=== PATIENT | female | born 1970 | race Caucasian/White ===

== ENCOUNTER 2018-03-20 15:24 | Emergency (ER) | payer SELFPAY ==
[2018-03-20 15:35] VITALS: O2SAT 98
--- NOTE | 2018-03-20 15:38 | ERPHSYRPT ---
- History of Present Illness Time Seen by Provider: 03/20/18 15:33 Source: patient Physician History: 47-year-old white female arrives with complaint of [place] in the right side of her mouth of paresthesia right side of the face symptoms for 3 days. Patient states she went to sleep and awoke with the above-noted problems. Patient is had not had any problems speaking no problems moving her hands or feet or walking. Past medical history includes peripheral neuropathy Past surgical history includes , tubal ligation Social history positive for tobacco use denies alcohol or illicit drug use Timing/Duration: day(s) (3 days) Severity: moderate Modifying Factors: Improves With: nothing Associated Symptoms: other (drooping right-sided mouth paresthesia right side of face), No nausea, No vomiting, No abdominal pain, No shortness of breath, No heartburn, No diaphoresis, No cough, No chills, No chest pain, No fever, No headaches, No loss of appetite, No malaise, No rash, No syncope, No seizure, No weakness Allergies/Adverse Reactions: No Known Drug Allergies Allergy (Verified 03/20/18 15:34) Home Medications: No Reportable Medications [No Reported Medications] 03/20/18 [History] Hx Tetanus, Diphtheria Vaccination/Date Given: Yes Hx Influenza Vaccination/Date Given: No Hx Pneumococcal Vaccination/Date Given: No - Review of Systems Constitutional: No Fever, No Chills Eyes: No Symptoms Ears, Nose, & Throat: No Symptoms Respiratory: No Cough, No Dyspnea Cardiac: No Chest Pain, No Edema, No Syncope Abdominal/Gastrointestinal: No Abdominal Pain, No Nausea, No Vomiting, No Diarrhea Genitourinary Symptoms: No Dysuria Musculoskeletal: Other (pain right lateral neck), No Back Pain, No Neck Pain Skin: No Rash Neurological: Parasthesia (paresthesia right side of face), Other (drooping right side of mouth) Psychological: No Symptoms Endocrine: No Symptoms All Other Systems: Reviewed and Negative - Past Medical History Pertinent Past Medical History: No Neurological History: Peripheral Neuropathy - Past Surgical History Past Surgical History: Yes Female Surgical History: Section, Tubal Ligation - Social History Smoking Status: Current every day smoker Exposure to second hand smoke: Yes Drug Use: none Patient Lives Alone: No - Nursing Vital Signs Nursing Vital Signs: Initial Vital Signs Temperature 98.2 F 03/20/18 15:28 Pulse Rate 100 H 03/20/18 15:28 Respiratory Rate 18 03/20/18 15:28 Blood Pressure 163/101 03/20/18 15:28 O2 Sat by Pulse Oximetry 98 03/20/18 15:28 Pain Scale Pain Intensity 6 - Physical Exam General Appearance: other (wwell-developed well-nourished white speaks out of left side of mouth drooping right side of mouth unable to wrinkle right forehead alert, oriented 3 no acute distress) Eye Exam: PERRL/EOMI, eyes nml inspection, other (unable to elevate right eye brow) Ears, Nose, Throat Exam: other (Speaks out of left side of mouth drooping right side of mouth) Neck Exam: normal inspection, non-tender, supple, full range of motion Respiratory Exam: normal breath sounds, lungs clear, No respiratory distress Cardiovascular Exam: regular rate/rhythm, normal heart sounds, normal peripheral pulses Gastrointestinal/Abdomen Exam: soft, normal bowel sounds, No tenderness, No mass Back Exam: normal inspection, normal range of motion, No CVA tenderness, No vertebral tenderness Extremity Exam: normal inspection, normal range of motion, pelvis stable Neurologic Exam: alert, oriented x 3, other (electrical inspector equal and symmetrical 5 over 5, no pronator drift,sensation intact to all extremities unable to elevate right eyebrow drooping right side of mouth speaks out of left side of mouth eyes PERRLA EOMI fundi are unremarkable) Skin Exam: normal color, warm, dry, No rash Lymphatic Exam: No adenopathy SpO2 Interpretation: normal (99%) - Course Nursing assessment & vital signs reviewed: Yes EKG Interpreted by Me: RATE (89 bpm), Sinus Rhythm, Left [place] Deviation, Other ( EKG: Sinus rhythm, 89 bpm, left axis deviation, left anterior fascicular block, no acute ST or T wave changes) - CT Exams Head CT Interpretation: Discussed w/radiologist, Other (normal head CT without contrast) Ordered Tests: Active Orders 24 hr Category Date Time Status Accucheck STAT Care 03/20/18 15:31 Active Customs Officer STAT Care 03/20/18 15:32 Active EKG-ER Only STAT Care 03/20/18 15:31 Active IV Insertion STAT Care 03/20/18 15:31 Active HEAD WITHOUT CONTRAST [CT] Stat Exams 03/20/18 15:32 Completed CBC W DIFF Stat Lab 03/20/18 15:44 Completed CMP Stat Lab 03/20/18 15:44 Completed Lab/Rad Data: Laboratory Result Diagrams 03/20/18 15:44 03/20/18 15:44 Laboratory Results 03/20/18 03/20/18 Range/Units 15:44 15:44 WBC 11.3 H (4.0-10.5) K/mm3 RBC 4.28 (4.1-5.4) M/mm3 Hgb 12.2 (12.0-16.0) gm/dl Hct 38.1 (35-47) % MCV 89.0 (78-100) fl MCH 28.5 (26-32) pg MCHC 32.0 (32-36) g/dl RDW 15.0 H (11.5-14.0) % Plt Count 380 (150-450) K/mm3 MPV 10.6 H (6-9.5) fl Gran % 56.7 (36.0-66.0) % Eos # (Auto) 0.46 (0-0.5) Absolute Lymphs (auto) 3.49 (1.0-4.6) Absolute Monos (auto) 0.91 (0.0-1.3) Lymphocytes % 30.8 (24.0-44.0) % Monocytes % 8.0 (0.0-12.0) % Eosinophils % 4.1 (0.00-5.0) % Basophils % 0.4 (0.0-0.4) % Absolute Granulocytes 6.43 (1.4-6.9) Basophils # 0.04 (0-0.4) Sodium 141 (137-145) mmol/L Potassium 3.9 (3.5-5.1) mmol/L Chloride 104 (98-107) mmol/L Carbon Dioxide 27 (22-30) mmol/L Anion Gap 13.8 (5-15) MEQ/L BUN 13 (7-17) mg/dL Creatinine 0.69 (0.52-1.04) mg/dL Estimated GFR > 60.0 ML/MIN Glucose 108 H (74-106) mg/dL Calcium 9.2 (8.4-10.2) mg/dL Total Bilirubin 0.10 L (0.2-1.3) mg/dL AST 37 H (14-36) U/L ALT 36 H (0-35) U/L Alkaline Phosphatase 83 (38-126) U/L Serum Total Protein 7.3 (6.3-8.2) g/dL Albumin 4.1 (3.5-5.0) g/dL - Progress Progress: improved Progress Note: 03/20/18 16:59 Patient with Hawkins's palsy CT of the head is essentially normal. Patient does have involvement of the right forehead drooping of the right side of the mouth. No speech problems or problems moving extremities. I've discussed case with Dr. Bell. She would like me to place the patient on acyclovir and prednisone taper dose. And have patient follow-up with Rachel Renner she is to call for follow-up appointment in the next few days. - Departure Time of Disposition: 17:00 Departure Disposition: Home Clinical Impression: Weakness on right side of face, Hawkins's palsy Condition: Fair Critical Care Time: No Referrals: Rae Samaniego [Primary Care Provider] - Additional Instructions: Return home. Acyclovir and prednisone as directed.. Follow-up with Rachel Renner call in the morning to schedule an appointment within the next day or 2. Return for acute distress or for severe symptoms.
--- NOTE | 2018-03-20 16:05 | XRAY ---
Indication: Headache and right facial drooping. Family history of Hawkins's palsy. Multiple contiguous axial images obtained through the head without contrast. Comparison: None Normal appearing brain parenchyma, ventricles, and bony calvarium. Visualized paranasal sinuses and mastoid air cells are clear. Impression: Normal CT head without contrast exam. CTDI 68.98
[2018-03-20 16:17] LABS: ALBUMIN 4.1 g/dL (3.5-5.0); ALKALINE PHOSPHATASE 83 U/L (38-126); ANION GAP 13.8 MEQ/L (5-15); BLOOD UREA NITROGEN 13 mg/dL (7-17); CHLORIDE 104 mmol/L (98-107); Calcium 9.2 mg/dL (8.4-10.2); Carbon Dioxide 27 mmol/L (22-30); Creatinine 1 0.69 mg/dL (0.52-1.04); Glucose 108 mg/dL (74-106); Potassium 3.9 mmol/L (3.5-5.1); SGOT/AST 37 U/L (14-36); SGPT/ALT 36 U/L (0-35); SODIUM 141 mmol/L (137-145); Total Protein 7.3 g/dL (6.3-8.2)
[2018-03-20 16:18] LABS: BASOPHIL % 0.4 % (0.0-0.4); Basophil (Absolute #) 0.04 (0-0.4); Eosinophil % 4.1 % (0.00-5.0); Eosinophil (Absolute #) 0.46 (0-0.5); Granulocyte Absolute (ANC) 6.43 (1.4-6.9); Granulocytes % 56.7 % (36.0-66.0); Hematocrit 38.1 % (35-47); Hemoglobin 12.2 gm/dl (12.0-16.0); Lymphocyte (Absolute #) 3.49 (1.0-4.6); Lymphocytes % 30.8 % (24.0-44.0); Mean Corpuscular Hemoglobin 28.5 pg (26-32); Mean Platelet Volume 10.6 fl (6-9.5); Monocyte (Absolute #) 0.91 (0.0-1.3); Platelet Count 380 K/mm3 (150-450); Red Blood Count 4.28 M/mm3 (4.1-5.4); White Blood Count 11.3 K/mm3 (4.0-10.5)
[2018-03-20 17:06] VITALS: BP 158/96; PULSE 94
== END 2018-03-20 17:27 | disposition home or self-care (01) ==
LOC: ED 15:24
DX: G51.0 Bell's palsy (principal); R53.1 Weakness
CPT/HCPCS: 36000; 36415; 70450; 80053; 82962; 85025; 93005; 93041; 99283; 99284